=== PATIENT | female | born 1965 | race Caucasian/White ===

== ENCOUNTER 2018-10-28 21:08 | Emergency (ER) | payer OTHER ==
[2018-10-28] MEDS ORDERED: LORazepam 1 MG TABLET PO ONE (21:29)
[2018-10-28] MEDS ORDERED: LORazepam 0.5 MG TABLET ONE (21:30)
[2018-10-28 21:33] VITALS: BP 151/90; PULSE 74; TEMP 98.7; BMI 33.6
[2018-10-28 21:40] LABS: BASO % 0.7 % (0-2.0); EOS % 1.2 % (0-4.5); HEMATOCRIT 38.7 % (32.4-45.2); HEMOGLOBIN 12.9 GM/dl (10.7-15.3); LYMPH % 32.7 % (8-40); MCH 29.6 pg (25.7-33.7); MCHC 33.4 g/dl (32.0-36.0); MEAN CELL VOLUME 88.5 fl (80-96); MEAN PLT VOLUME 8.1 fl (7.5-11.1); MONO % 7.1 % (3.8-10.2); NEUT % 58.3 % (42.8-82.8); PLATELET COUNT 321 K/MM3 (134-434); RBC 4.37 M/mm3 (3.60-5.2); RDW 12.6 % (11.6-15.6); WHITE BLOOD COUNT 8.2 K/mm3 (4.0-10.8)
--- NOTE | 2018-10-28 21:46 | PDOC ---
Documentation entered by Noemy Jara SCRIBE, acting as scribe for Joao Galaviz MD. Joao Galaviz MD: This documentation has been prepared by the Marek gandhi Collisia, SCRIBE, under my direction and personally reviewed by me in its entirety. I confirm that the documentation accurately reflects all work, treatment, procedures, and medical decision making performed by me. History of Present Illness - General Chief Complaint: Chest Pain Stated Complaint: CHEST PRESSURE Time Seen by Provider: 10/28/18 21:14 History Source: Patient Exam Limitations: No Limitations - History of Present Illness Initial Comments: 10/28/18 21:40 The patient is a 53 year old female with a significant past medical history of hypertension, obesity and anxiety who presents to the emergency department with chest pressure for 3 weeks The patient states that she has been under an increased amount of stress at work that usually bring on symptoms. The patient states that she has been going to the gym about 3 times a week. She denies any shortness of breath, headache, dizziness, weakness, fever, chills, nausea, vomiting, diarrhea, constipation or urinary symptoms. The patient denies any history of smoking. She denies any other complaints. Past History - Past Medical History Allergies/Adverse Reactions: Allergies Allergy/AdvReac Type Severity Reaction Status Date / Time No Known Allergies Allergy Verified 10/28/18 21:15 Home Medications: Ambulatory Orders Amlodipine Besylate [Norvasc -] 10 mg PO DAILY 10/28/18 Labetalol HCl [Normodyne -] 200 mg PO BID 10/28/18 Lorazepam [Ativan] 1 mg PO DAILY PRN #2 tablet MDD 1 10/28/18 Review of Systems - Review of Systems Able to Perform ROS?: Yes Comments:: 10/28/18 21:41 GENERAL/CONSTITUTIONAL: No fever or chills. No weakness. HEAD, EYES, EARS, NOSE AND THROAT: No change in vision. No ear pain or discharge. No sore throat. CARDIOVASCULAR: +)chest pressure. No shortness of breath. RESPIRATORY: (No cough, wheezing, or hemoptysis. GASTROINTESTINAL: No nausea, vomiting, diarrhea or constipation. GENITOURINARY: No dysuria, frequency, or change in urination. MUSCULOSKELETAL: No joint or muscle swelling or pain. No neck or back pain. SKIN: No rash NEUROLOGIC: No headache, vertigo, loss of consciousness, or change in strength/ sensation. ENDOCRINE: No increased thirst. No abnormal weight change. HEMATOLOGIC/LYMPHATIC: No anemia, easy bleeding, or history of blood clots. ALLERGIC/IMMUNOLOGIC: No hives or skin allergy. *Physical Exam - Vital Signs Last Vital Signs Temp Pulse Resp BP Pulse Ox 98.7 F 74 16 151/90 100 10/28/18 21:26 10/28/18 21:26 10/28/18 21:26 10/28/18 21:26 10/28/18 21:26 - Physical Exam Comments: 10/28/18 21:41 GENERAL: (+)anxious. Awake, alert, and fully oriented, in no acute distress HEAD: No signs of trauma EYES: PERRLA, EOMI, sclera anicteric, conjunctiva clear ENT: Auricles normal inspection, hearing grossly normal, nares patent, oropharynx clear without exudates. Moist mucosa NECK: Normal ROM, supple, no lymphadenopathy, JVD, or masses LUNGS: Breath sounds equal, clear to auscultation bilaterally. No wheezes, and no crackles HEART: Regular rate and rhythm, normal S1 and S2, no murmurs, rubs or gallops ABDOMEN: Soft, nontender, normoactive bowel sounds. No guarding, no rebound. No masses EXTREMITIES: Normal range of motion, no edema. No clubbing or cyanosis. No cords, erythema, or tenderness NEUROLOGICAL: Cranial nerves II through XII grossly intact. Normal speech, normal gait SKIN: Warm, Dry, normal turgor, no rashes or lesions noted. Heart Score/ECG Review - History History: Slightly suspicious - Electrocardiogram EKG: Normal - Age Age: 45-65 - Risk Factors Risk Factors Heart Score: Yes Hx Hypertension, Yes Hx Obesity Based on the list above the patient has:: 1-2 risk factors - Troponin Troponin: </= normal limit - Score Heart Score - Total: 2 #1 ECG reviewed & interpreted by me at: 21:20 10/28/18 21:35 NSR 67, no std/joellen, normal axis, normal intervals, QTC 420 msec ED Treatment Course - LABORATORY CBC & Chemistry Diagram: 10/28/18 21:30 10/28/18 21:30 - RADIOLOGY Radiology Studies Ordered: Category Date Time Status CHEST X-RAY PORTABLE* [RAD] Stat Radiology 10/28/18 21:29 Ordered - Medications Given in the ED: ED Medications Discontinued Medications Generic Name Dose Route Start Last Admin Trade Name Mohan PRN Reason Stop Dose Admin Lorazepam 1 mg 10/28/18 21:29 10/28/18 21:35 Ativan - PO 10/28/18 21:30 1 mg ONCE ONE Administration Medical Decision Making - Medical Decision Making 10/28/18 21:35 A portion of this note was documented by scribe services under my direction. I have reviewed the details of the note, within reason, and agree with the documentation with the following case summary and management plan written by me. Patient treated in the ED. Nursing notes are reviewed and incorporated into the medical decision-making. Vital signs reviewed. Peripheral IV access obtained by the nurse, laboratory studies are drawn and sent, reviewed and interpreted by myself. Vital Signs Temp Pulse Resp BP Pulse Ox 98.7 F 74 16 151/90 100 10/28/18 21:26 10/28/18 21:26 10/28/18 21:26 10/28/18 21:26 10/28/18 21:26 53-year-old female with past medical history of obesity, hypertension presents with chest discomfort. Patient reports 3 weeks of these intermittent dull mild chest ache with no radiation. Not dyspneic on exertion. Patient is able to work out 5 days a week. Patient reports that she's undertreatment smashed stress at work. Patient reports some wonders increasing conflict at work, the patient starts to have just chest discomfort. When she relaxes, the symptoms improved. Patient has no family history of cardiac disease. No smoking history. Patient does report feeling significant stressed out. I suspect patient likely has a panic attack. EKG is reassuring and normal. We' ll obtain a troponin. We'll trial Ativan. If the workup is negative and the patient feels better, I feel comfortable calling this a panic attack and have the patient follow-up as an outpatient. 10/28/18 22:17 CBC, BMP 10/28/18 21:30 10/28/18 21:30 CMP Sodium 139 mmol/L (136-145) 10/28/18 21:30 Potassium 4.0 mmol/L (3.5-5.1) 10/28/18 21:30 Chloride 106 mmol/L (98-107) 10/28/18 21:30 Carbon Dioxide 25 mmol/L (21-32) 10/28/18 21:30 Anion Gap 8 MMOL/L (8-16) 10/28/18 21:30 BUN 21 mg/dl (7-18) H 10/28/18 21:30 Creatinine 0.9 mg/dl (0.55-1.3) 10/28/18 21:30 Creat Clearance w eGFR 65.01 (>60) 10/28/18 21:30 Random Glucose 124 mg/dl (74-106) H 10/28/18 21:30 Calcium 9.8 mg/dl (8.5-10) 10/28/18 21:30 Total Bilirubin 0.4 mg/dl (0.2-1) 10/28/18 21:30 AST 16 U/L (15-37) 10/28/18 21:30 ALT 13 U/L (13-61) 10/28/18 21:30 Alkaline Phosphatase 71 U/L (45-117) 10/28/18:30 Troponin I < 0.03 ng/ml (0.00-0.05) 10/28/18 21:30 Total Protein 7.0 g/dl (6.4-8.2) 10/28/18 21:30 Albumin 4.4 g/dl (3.4-5.0) 10/28/18 21:30 Troponin is negative. Pt feels much better after ativan. The patient had requested for a prescription for ativan. I stated that this is not really the optimal way to treat anxiety. I strongly urged her to visit her PMD who can then provide a keno terminal operator, individualized plan. The patient was quite anxious that she would be anxious again. We ultimately agreed that I would prescribe two more tablets of ativan PRN. She will be taken home by her . Pt will follow up with a PMD and a make a follow up appointment with a marine specialist. *DC/Admit/Observation/Transfer Diagnosis at time of Disposition: Panic attack - Discharge Dispostion Disposition: HOME Condition at time of disposition: Good Decision to Admit order: No - Prescriptions Prescriptions: Lorazepam [Ativan] 1 mg PO DAILY PRN #2 tablet MDD 1 PRN Reason: Anxiety - Referrals Referrals: Lavell Anderson MD [Primary Care Provider] - - Patient Instructions Printed Discharge Instructions: DI for Panic Disorder, Anxiety and Panic Attacks (Alternative Therapy) Additional Instructions: Please follow up with your doctor and marine specialist. Call to schedule an appointment. If you do not need to, please do not take the ativan. However, if you feel very anxious, you may take a 1 mg tablet of ativan. Please do not drive or drink antibiotics while on this medication. - Post Discharge Activity
[2018-10-28 21:57] LABS: ALBUMIN 4.4 g/dl (3.4-5.0); ALK PHOS 71 U/L (45-117); ANION GAP 8 MMOL/L (8-16); BILIRUBIN,TOTAL 0.4 mg/dl (0.2-1); BLOOD UREA NITROGEN 21 mg/dl (7-18); CALCIUM 9.8 mg/dl (8.5-10); CHLORIDE 106 mmol/L (98-107); CO2 25 mmol/L (21-32); CREATININE 0.9 mg/dl (0.55-1.3); GLUCOSE,RANDOM 124 mg/dl (74-106); SGOT/AST 16 U/L (15-37); SGPT/ALT 13 U/L (13-61); SODIUM 139 mmol/L (136-145)
--- NOTE | 2018-10-29 14:21 | EKG ---
Test Reason : Blood Pressure : / mmHG Vent. Rate : 067 BPM Atrial Rate : 067 BPM P-R Int : 174 ms QRS Dur : 094 ms QT Int : 398 ms P-R-T Axes : 029 -08 012 degrees QTc Int : 420 ms NORMAL SINUS RHYTHM WITH SINUS ARRHYTHMIA NORMAL ECG Confirmed by BRENDON KNOWLES MD ([id number]) on 10/29/2018 2:21:34 PM Referred By: PATITO Confirmed By:BRENDON KNOWLES MD
== END 2018-10-28 22:32 | disposition home or self-care (01) ==
LOC: FER 21:08
DX: F41.0 Panic disorder [episodic paroxysmal anxiety] (principal)
CPT/HCPCS: 36415; 71045-TC-FY; 80053; 84484; 85025; 93005; 99283-25